=== PATIENT | female | born 1980 | race Two or more races ===

== ENCOUNTER 2017-12-08 09:21 | Emergency (ER) | payer OTHER ==
--- NOTE | 2017-12-08 09:50 | EDPHY ---
General - History Smoking Status: Never smoked Time Seen by Provider: 12/08/17 09:47 Narrative: CHIEF COMPLAINT: Vaginal bleeding, HISTORY OF PRESENT ILLNESS: Patient presents by private vehicle and significant other with complaints of vaginal bleeding and cramping in . She reports to 1st day of her last menstrual period is October 18. She says that she woke this morning with some spotting that has increased to some "dripping blood." She reports 5:00 a.m. Onset of the spotting, 8:00 a.m. It increased. She has gone through only 1 pad over the past 2 hr. She has some lower abdominal and suprapubic cramping that she describes as similar to menstrual pain. She has no back pain. No headache. No neck pain. No chest pain. No shortness of breath or fever. She is with a pending OB appointment on December 28. No current care. No known bleeding disorders. No previous miscarriage. She says that her blood type is A-positive. No other associated complaints or modifying factors. REVIEW OF SYSTEMS: 10 systems were reviewed and negative with the exception of the elements mentioned in the history of present illness. PCP: Dr. Rula Johnson SPECIALISTS: Pending appointment with OB physician Dr. Kulkarni on December 28 PAST MEDICAL HISTORY: Uncomplicated. No surgical history. he PAST SURGICAL HISTORY: No surgical history SOCIAL HISTORY: Nonsmoker. Lives and works independently with her significant other. 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 No tympany rigidity. No guarding. : Deferred Back: non-tender, no bony abnormalities Neurological: A&O, nonfocal, normal gait Skin: Warm and dry, no rash Extremities: Nontender, no pedal edema Psychiatric: Mood and affect normal DIFFERENTIAL DIAGNOSES: Including but not limited to miscarriage, threatened miscarriage, incomplete miscarriage, subchorionic hemorrhage, vaginal bleeding MDM: 9:45 a.m. Abdominal pelvic pain and cramping with spotting and vaginal bleeding this morning. She is first-trimester, approximately 7 or 8 weeks with a last menstrual. Of October 18. She is a with no previous complications. No history of bleeding disorders. No severe pain. Vital signs are within normal limits. We discussed the nature of her presentation and I have ordered laboratory studies, ultrasound. She reports that she has A positive but will verify this. 10:15 a.m. ict help desk technician is at bedside. Her CBC is unremarkable with minimal anemia, hemoglobin 12.5. Remainder laboratory studies are pending. 10:30 a.m. Chemistry values are unremarkable. Her HCG and blood type per pending. 10:45 a.m. HCG quantitative is elevated. She is a positive on her blood bank and thus does not require RhoGAM. Ultrasound pending. 11:30 a.m. Notified by radiologist Dr. Church. We discussed the ultrasound findings as documented. 11:50 a.m. Patient re-evaluated. I have discussed the findings with her. These include either incomplete miscarriage versus is early gestation. There is no definite pole or gestational sac but there is fluid of unknown etiology in the endometrium. No adnexal abnormality. We discussed the need for serial HCGs, follow up with Ob physician, and further ultrasound for definitive diagnosis. We discussed the likelihood of incomplete miscarriage at this time. We discussed symptomatic control at home with nausea medication and rest. We discussed ED precautions for any worsening cramping pain, heavy bleeding greater than 1 pad per hour, lightheadedness, dizziness or chest pain. I have answered all of her questions. I provided the on-call OB physician for to contact. She is comfortable this plan and discharged home stable condition. SUPERVISION: Patient was independently examined, but I discussed the case with my secondary supervising physician Dr. Woody Kitchen CONSULTATION: None. OB referral (Douglas Leung) Medical Decision Making: I did not see this patient while she was in the emergency department. However her care was discussed with the PA while the patient was in the department. I agree with treatment plan and management (Woody Kitchen) - Objective Vital Signs: Initial Vital Signs Temperature (C) 36.7 C 12/08/17 09:25 Heart Rate 75 12/08/17 09:25 Respiratory Rate 18 12/08/17 09:25 Blood Pressure 129/92 H 12/08/17 09:25 O2 Sat (%) 100 12/08/17 09:25 O2 Delivery Mode Room Air Allergies/Adverse Reactions: No Known Allergies Allergy (Unverified 12/08/17 09:27) Home Medications: Medication Instructions Recorded Hydrocodone/APAP 5/325 [[place] 1 - 2 tab PO Q4H PRN #7 tab 12/08/17 5/325 (*)] Promethazine HCl [Phenergan 25mg 25 mg PO Q8 PRN #12 tab 12/08/17 (*)] Laboratory Results: Laboratory Results 12/08/17 09:40 12/08/17 09:40 Departure - Departure Disposition: Home, Routine, Self-Care Clinical Impression: Vaginal bleeding during Condition: Good Instructions: Miscarriage (ED), Threatened Miscarriage (ED) Additional Instructions: 1. Medications as prescribed as needed. Do not take ibuprofen or Aleve until repeat HCG 2. Follow up with primary care physician or OB for repeat HCG in 48-72 hours 3. Follow up with Ob physician for definitive care 4. ED precautions for worsening pain, bleeding greater than 1 pad per hour, lightheadedness, dizziness or chest pain Referrals: Rula Tran MD [Primary Care Provider] - As per Instructions Puneet Swartz MD [Medical Doctor] - As per Instructions Stand Alone Forms: Work Excuse Prescriptions: Hydrocodone/APAP 5/325 [[place] 5/325 (*)] 1 - 2 tab PO Q4H PRN #7 tab PRN Reason: Pain, Moderate Promethazine HCl [Phenergan 25mg (*)] 25 mg PO Q8 PRN #12 tab PRN Reason: Nausea/Vomiting, Use 1st
[2017-12-08 09:59] LABS: PLATELET COUNT 255 10^3/uL (150-400)
[2017-12-08 12:14] VITALS: BP 115/95
== END 2017-12-08 12:15 | disposition home or self-care (01) ==
DX: O26.851 Spotting complicating pregnancy, first trimester (principal); Z3A.01 Less than 8 weeks gestation of pregnancy